=== PATIENT | female | born 1970 | race Caucasian/White ===

== ENCOUNTER 2018-07-26 15:10 | Outpatient (CLI) | payer BC ==
--- NOTE | 2018-07-27 09:30 | MMO ---
BILATERAL SCREENING MAMMOGRAM: HISTORY: A 48-year-old female for screening mammography. COMPARISON: None available. FINDINGS: Bilateral MLO and CC views of the breasts show scattered fibroglandular breast tissue. Benign appear ing calcifications are seen in the right breast. There is no evidence of suspicious mass, suspicious cluster of microcalcifications, or area of architectural distortion. Interpretation of this mammogram was performed with the assistance of computer aided detection. IMPRESSION: BI-RADS Category 2-Benign findings. Annual screening mammography is recommended. POS: [facility]
== END 2018-07-26 15:11 | disposition home or self-care (01) ==
LOC: SCSMAMMO 15:10
PROVIDERS: ATTEND Family Medicine
DX: Z12.31 Encounter for screening mammogram for malignant neoplasm of breast (principal)
CPT/HCPCS: 77067